=== PATIENT | male | born 1995 ===

== ENCOUNTER 2018-12-02 20:56 | Emergency (ER) | payer SELFPAY ==
[2018-12-02 21:19] VITALS: BP 109/78; PULSE 88; RESP 16; TEMP 37.7; O2SAT 95; BMI 20.9
--- NOTE | 2018-12-02 22:13 | ED.RN ---
PT'S GIRLFRIEND SHOWS UP, YELLS AT THIS RN ASKING WHY IS HE SITTING IN THE HALLWAY EMOTIONAL SUPPORT GIVEN, STATED HE IS CHECKED IN AND WAITING FOR A ROOM. GIRLFRIEND STATES I NEED YOU TAKE OUT HIS IV, IM TAKING HIM TO ANOTHER HOSPITAL THIS RN REASSURED THAT THERE WAS ONLY 2 PATIENTS INFRONT OF HIM AND THAT THERE ARE DISCHARGES UP IN THE ED AND THAT WE WOULD GET HIM BACK TO A ROOM SOON POSSIBLE. PT AND FAMILY STILL WISH TO LEAVE. IV WAS D/C'D PER POLICY. CLEAN DRY DRESSING APPLIED. PT AMBULATED SELF WITH STEADY GAIT TO CAR WITH FAMILY MEMBERS.
== END 2018-12-02 22:13 | disposition left against medical advice (07) ==
PROVIDERS: Emergency Provider Emergency Medicine
DX: R55 Syncope and collapse (principal)
CPT/HCPCS: 99283; J7030